=== PATIENT | female | born 1975 | race Caucasian/White ===

== ENCOUNTER 2023-08-06 11:58 | Outpatient (RCR) | payer OTHER, SELFPAY | END 2023-08-06 23:59 | disposition home or self-care (01) | LOC: RPT 11:58 | PROVIDERS: ATTENDING PHYSICIAN Orthopaedic Surgery Hand Surgery; FAMILY PHYSICIAN Internal Medicine | DX: Z47.89 Encounter for other orthopedic aftercare (principal); Z73.6 Limitation of activities due to disability | CPT/HCPCS: 97010; 97110; 97140; 97161 ==

== ENCOUNTER 2023-09-04 13:18 | Outpatient (RCR) | payer OTHER, SELFPAY | END 2023-09-04 23:59 | disposition home or self-care (01) | LOC: RPT 13:18 | PROVIDERS: ATTENDING PHYSICIAN Orthopaedic Surgery Hand Surgery; FAMILY PHYSICIAN Internal Medicine | DX: Z47.89 Encounter for other orthopedic aftercare (principal); Z73.6 Limitation of activities due to disability; M62.81 Muscle weakness (generalized); M25.511 Pain in right shoulder | CPT/HCPCS: 97010; 97110; 97140 ==

== ENCOUNTER 2023-09-15 11:03 | Outpatient (RCR) | payer OTHER, SELFPAY | END 2023-09-15 23:59 | disposition home or self-care (01) | LOC: RPT 11:03 | PROVIDERS: ATTENDING PHYSICIAN Orthopaedic Surgery Hand Surgery; FAMILY PHYSICIAN Internal Medicine | DX: Z47.89 Encounter for other orthopedic aftercare (principal); Z73.6 Limitation of activities due to disability; M62.81 Muscle weakness (generalized); M25.511 Pain in right shoulder | CPT/HCPCS: 97110 ==

== ENCOUNTER → 2023-12-01 13:57 | Outpatient (REF) | payer OTHER, SELFPAY | LOC: RAD 13:57 | PROVIDERS: ATTENDING PHYSICIAN Internal Medicine | DX: R10.9 Unspecified abdominal pain (principal) | CPT/HCPCS: 74177; Q9967 ==

== ENCOUNTER → 2023-12-25 13:27 | Outpatient (REF) | payer OTHER, SELFPAY | LOC: HWWDC 13:27 | PROVIDERS: ATTENDING PHYSICIAN Obstetrics & Gynecology Gynecology; FAMILY PHYSICIAN Internal Medicine | DX: Z12.31 Encounter for screening mammogram for malignant neoplasm of breast (principal) | CPT/HCPCS: 77063; 77067 ==

== ENCOUNTER 2023-12-31 06:17 | Outpatient (RCR) | payer OTHER, SELFPAY | END 2024-01-05 08:21 | disposition home or self-care (01) | LOC: RPT 06:17 | PROVIDERS: ATTENDING PHYSICIAN Orthopaedic Surgery Hand Surgery; FAMILY PHYSICIAN Internal Medicine | DX: Z48.89 Encounter for other specified surgical aftercare (principal); Z73.6 Limitation of activities due to disability; M25.611 Stiffness of right shoulder, not elsewhere classified | CPT/HCPCS: 97110 ==

== ENCOUNTER → 2024-03-23 06:32 | Day surgery (SDC) | payer OTHER, SELFPAY | LOC: GI 06:32 | PROVIDERS: ATTENDING PHYSICIAN Internal Medicine | DX: Z12.11 Encounter for screening for malignant neoplasm of colon (principal); K64.9 Unspecified hemorrhoids; K57.30 Diverticulosis of large intestine without perforation or abscess without bleeding; D12.2 Benign neoplasm of ascending colon; R12 Heartburn; F45.8 Other somatoform disorders; K44.9 Diaphragmatic hernia without obstruction or gangrene; K21.00 Gastro-esophageal reflux disease with esophagitis, without bleeding; K22.70 Barrett's esophagus without dysplasia; K29.50 Unspecified chronic gastritis without bleeding | CPT/HCPCS: 45385; 43239; 88305; 88342 ==

== ENCOUNTER → 2024-12-27 10:03 | Outpatient (REF) | payer OTHER, SELFPAY | LOC: HWWDC 10:03 | PROVIDERS: ATTENDING PHYSICIAN Obstetrics & Gynecology Gynecology; FAMILY PHYSICIAN Internal Medicine | DX: Z12.31 Encounter for screening mammogram for malignant neoplasm of breast (principal) | CPT/HCPCS: 77063; 77067 ==

== ENCOUNTER 2025-04-25 06:27 | Day surgery (SDC) | payer OTHER, SELFPAY | END 2025-04-25 11:04 | disposition home or self-care (01) | LOC: GI 06:27 | PROVIDERS: ATTENDING PHYSICIAN Internal Medicine; FAMILY PHYSICIAN Internal Medicine | DX: K22.89 Other specified disease of esophagus (principal); K20.90 Esophagitis, unspecified without bleeding; K21.9 Gastro-esophageal reflux disease without esophagitis | CPT/HCPCS: 43239; 88305 ==

== ENCOUNTER → 2025-07-04 08:12 | Outpatient (REF) | payer OTHER, SELFPAY | LOC: HWRAD 08:12 | PROVIDERS: ATTENDING PHYSICIAN Internal Medicine | DX: D17.1 Benign lipomatous neoplasm of skin and subcutaneous tissue of trunk (principal) | CPT/HCPCS: 76857 ==